=== PATIENT | male | born 1960 | race African-American/Black ===

== ENCOUNTER 2016-11-17 07:03 | Emergency (ER) ==
[2016-11-17 07:21] VITALS: BP 123/68
--- NOTE | 2016-11-17 08:23 | PROVIDER DOCUMENTATION ---
HPI-General Adult - General Chief Complaint: General Adult Stated Complaint: ABD PAIN,BILA HAND NUMBNESS Time Seen by Provider: 11/17/16 07:30 Source: patient, family Allergies/Adverse Reactions: Patient Allergies Allergy/AdvReac Type Severity Reaction Status Date / Time No Known Allergies Allergy Verified 11/17/16 07:28 Home Medications: Home Medication List Medication Instructions Recorded Confirmed Last Taken Type Mebendazole 100 mg PO DAILY #2 tab.chew 11/17/16 Unknown Rx - History of Present Illness -Gen Adult Nature of Presenting Problems: Reports whole family infested with pinworms and, talking about all sorts of non- specific symptoms, i.e, ear/skin tingling skin crawling, anxiety, etc. Denies F/ C/N/V. Looks comfortable. OTC Pinworm meds did not help. Other two family member checked in for the same. All looks very anxious. Pt was seen at ER previously for similar issues. Location of Pain/Injury: reports: none Pain Radiation: reports: no radiation Quality of Pain: reports: none Severity: reports: mild Onset/Duration: reports: other (Chronic) Timing: reports: still present Context/Activities at Onset: reports: none Modifying Factors: improves with: nothing Associated Symptoms: reports: anxiety. denies: fatigue, fever/chills, syncope, vomiting, weakness Similar Symptoms Previously?: Yes Recently seen or treated by another doctor?: Yes Review of Systems - Adult - REVIEW OF SYSTEMS - ADULT Constitutional: reports: no symptoms reported. denies: fever Eyes: reports: no symptoms reported Ears, Nose, Mouth & Throat: reports: no symptoms reported Cardiovascular: reports: no symptoms reported Respiratory: reports: no symptoms reported Gastrointestinal: reports: see HPI. denies: abdominal pain, nausea, vomiting Genitourinary: reports: no symptoms reported Musculoskeletal: reports: no symptoms reported Integumentary: reports: see HPI All Other Systems: Reviewed and Negative Past History - Adult - PAST MEDICAL HISTORY-ADULT Review of Records: reports: Old Records Reviewed, Nursing Assessment Review, Medications Reviewed Physical Exam-General - PHYSICAL EXAM-ADULT Initial Vital Signs Reviewed: Yes - CONSTITUTIONAL General Appearance: appears well, alert, no apparent distress - EYES Eyes: PERRL/EOMI, pink conjunctivae - HEAD, EARS, NOSE, MOUTH & THROAT HENMT: normocephalic/atraumatic, moist mucous membranes, normal ENT inspection - NECK Neck: non-tender, full range of motion - RESPIRATORY Respiratory: chest non-tender, lungs clear, normal breath sounds - CARDIOVASCULAR Cardiovascular: normal peripheral pulses, regular rate, rhythm, no edema, no gallop, no JVD - GASTROINTESTINAL (ABDOMEN) Abdominal Exam: normal bowel sounds, non tender, soft, no organomegaly - MUSCULOSKELETAL Extremity: normal range of motion, non-tender - SKIN Integumentary: normal color, normal turgor, warm/dry - NEUROLOGIC Neurologic: no motor/sensory deficits Departure - Departure Time of Disposition Order: 08:21 DIAGNOSIS: Pinworm infection Disposition: HOME 01 Certified Medical Emergency: Emergent Condition: Stable Additional Instructions: Follow up with Dr. Noel HOU for further management. Prescriptions: Mebendazole 100 mg PO DAILY #2 tab.chew Referrals: SABRINA MCADAMS [Primary Care Provider] - Instructions: Hookworm Infection
== END 2016-11-17 08:20 | disposition home or self-care (01) ==
LOC: ED 07:03
DX: B80 Enterobiasis (principal); R10.9 Unspecified abdominal pain; R20.0 Anesthesia of skin; R20.2 Paresthesia of skin